=== PATIENT | female | born 1995 | race Caucasian/White ===

== ENCOUNTER 2019-10-31 00:10 | Outpatient (CLI) | payer MEDICAID ==
[~2019-10-31] VITALS: Ht 162.6 cm; Wt 104.5 kg
[2019-10-31 00:22] VITALS: BP 140/82
[2019-10-31] MEDS ORDERED: PREN-3 PO (00:29)
== END 2019-10-31 02:08 | disposition home or self-care (01) ==
LOC: LDOP 00:10
PROVIDERS: ATTEND Obstetrics & Gynecology
DX: O26.893 Other specified pregnancy related conditions, third trimester (principal); M25.472 Effusion, left ankle; Z3A.37 37 weeks gestation of pregnancy
CPT/HCPCS: 59025